=== PATIENT | male | born 1940 | race Caucasian/White ===

== ENCOUNTER 2021-01-06 14:08 | Emergency (ER) | payer MEDICARE ==
[~2021-01-06] VITALS: Ht 177.8 cm; Wt 90.8 kg
[2021-01-06 14:08] VITALS: BP 175/78
--- NOTE | 2021-01-06 14:39 | PHYS DOC ---
Past History Past Surgical History: No Surgical History Alcohol Use: Occasionally General Adult EDM: Chief Complaint: CHEST PAIN HPI: HPI: 81-year-old male presents with chest pain. The patient tells me that he has been having these intermittent episodes where it feels like there is a short thump of pressure in the left side of his chest. They only last a matter of seconds. He decided to come the emergency room today because he had 5 or 6 these episodes. They were not worse than any previous episodes just more of them today. Patient has no previous cardiac history. He had a negative stress test and cardiac work-up 2 years ago. He exercises regularly 3 days a week. He walked 4 miles yesterday. He denies fever or chills. He is vaccinated for C OVID-19. Review of Systems: Review of Systems: Constitutional: Denies fever or chills Eyes: Denies change in visual acuity HENT: Denies nasal congestion or sore throat Respiratory: Denies cough or shortness of breath Cardiovascular: Chest pain GI: Denies abdominal pain, nausea, vomiting, bloody stools or diarrhea : Denies dysuria Musculoskeletal: Denies back pain or joint pain Integument: Denies rash Neurologic: Denies headache, focal weakness or sensory changes Endocrine: Denies polyuria or polydipsia Lymphatic: Denies swollen glands Psychiatric: Denies depression or anxiety Allergies: Allergies: Allergies Coded Allergies Type Severity Reaction Last Updated Verified No Known Drug Allergies 01/06/21 No Physical Exam: PE: Constitutional: Well developed, well nourished, no acute distress, non-toxic appearance. [] HENT: Normocephalic, atraumatic, bilateral external ears normal, oropharynx moist, no oral exudates, nose normal. [] Eyes: PERRLA, EOMI, conjunctiva normal, no discharge. [] Neck: Normal range of motion, no tenderness, supple, no stridor. [] Cardiovascular: Heart rate 50, regular rhythm, no murmur [] Lungs & Thorax: Bilateral breath sounds clear to auscultation [] Abdomen: Bowel sounds normal, soft, no tenderness, no masses, no pulsatile masses. [] Skin: Warm, dry, no erythema, no rash. [] Back: No tenderness, no CVA tenderness. [] Extremities: No tenderness, no cyanosis, no clubbing, ROM intact, no edema. [] Neurologic: Alert and oriented X 3, normal motor function, normal sensory function, no focal deficits noted. [] Psychologic: Affect normal, judgement normal, mood normal. [] Current Patient Data: Vital Signs: Vital Signs Date Time Temp Pulse Resp B/P (MAP) Pulse Ox O2 Delivery O2 Flow Rate FiO2 01/06/21 14:08 97.9 50 14 175/78 100 Room Air EKG: EKG: Sinus rhythm, rate 50, normal axis, no ST elevation or depression. [] Radiology/Procedures: Radiology/Procedures: [] Impressions: XR CHEST 1V History: Chest pain Comparison: None. Technique: Portable AP radiograph of the chest. Findings: The lungs are adequately inflated. There are minimal linear opacities in the right lung base which may represent atelectasis. No pleural effusion or pneumothorax. Mild cephalization of pulmonary vasculature. Cardiac silhouette is normal in size. Degenerative changes of the spine. Soft tissues are unremarkable. Impression: 1. Mild right basilar atelectasis and mild pulmonary vascular congestion. Electronically signed by: Dennis Nichols MD (01/06/2021 3:04 PM) [facility] DICTATED AND SIGNED BY: DENNIS NICHOLS MD DATE: 01/06/21 1501 CC: VONDA BERGER DO; RANDALL KNIGHT MD ~MTH0 0 Heart Score: C/O Chest Pain: Yes HEART Score for Chest Pain: HEART Score for Chest Pain Response (Comments) Value History Slighlty/Non-Suspicious 0 ECG Normal 0 Age > 65 2 Risk Factors No Risk Factors 0 Troponin < Normal Limit 0 Total 2 Risk Factors: Risk Factors: DM, Current or recent (<one month) smoker, HTN, HLP, family history of CAD, obesity. Risk Scores: Score 0 - 3: 2.5% MACE over next 6 weeks - Discharge Home Score 4 - 6: 20.3% MACE over next 6 weeks - Admit for Clinical Observation Score 7 - 10: 72.7% MACE over next 6 weeks - Early Invasive Strategies Course & Med Decision Making: Course & Med Decision Making Pertinent Labs and Imaging studies reviewed. (See chart for details) The patient's EKG is unremarkable. His labs are unremarkable. His troponin is negative. His chest x-ray is negative for acute findings. This does not appear to be cardiopulmonary in nature. His description of the pain is also r eassuring as it is very short-lived. 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 He is stable for discharge at this time. [] Oksana Disclaimer: Dragjose Disclaimer: This electronic medical record was generated, in whole or in part, using a voice recognition dictation system. Departure Departure: Impression: Primary Impression: Chest pain Qualified Codes: R07.9 - Chest pain, unspecified Disposition: HOME / SELF CARE / HOMELESS Condition: STABLE Referrals: RANDALL KNIGHT MD (PCP) Patient Instructions: Chest Pain (Nonspecific), Vyad-ym-Fger VONDA BERGER DO Jan 06, 2021 14:39
[2021-01-06 14:51] LABS: BASO % 0 % (0-3); EOS # 0.2 x10^3/uL (0.0-0.7); EOS % 3 % (0-3); HEMATOCRIT 42.7 % (39.0-53.0); HEMOGLOBIN 14.5 g/dL (13.0-17.5); LYMPH # 2.2 x10^3/uL (1.0-4.8); LYMPH % 31 % (24-48); MEAN CORPUSCULAR HEMOGLOBIN 32 pg (25-35); MEAN CORPUSCULAR HGB CONC 34 g/dL (31-37); MEAN CORPUSCULAR VOLUME 93 fL (79-100); MONO # 0.7 x10^3/uL (0.0-1.1); MONO % 10 % (0-9); NEUT # 4.1 x10^3uL (1.8-7.7); NEUT % 56 % (31-73); PLATELET COUNT 142 x10^3/uL (140-400); RED BLOOD COUNT 4.59 x10^6/uL (4.30-5.70); RED CELL DISTRIBUTION WIDTH 13.3 % (11.5-14.5); WHITE BLOOD COUNT 7.3 x10^3/uL (4.0-11.0)
--- NOTE | 2021-01-06 15:07 | RAD ---
XR CHEST 1V History: Chest pain Comparison: None. Technique: Portable AP radiograph of the chest. Findings: The lungs are adequately inflated. There are minimal linear opacities in the right lung base which ma y represent atelectasis. No pleural effusion or pneumothorax. Mild cephalization of pulmonary vascula ture. Cardiac silhouette is normal in size. Degenerative changes of the spine. Soft tissues are unrem arkable. Impression: 1. Mild right basilar atelectasis and mild pulmonary vascular congestion. Electronically signed by: Dennis Nichols MD (01/06/2021 3:04 PM) [facility]
[2021-01-06 15:11] LABS: CALCIUM 8.5 mg/dL (8.5-10.1); CREATININE 0.8 mg/dL (0.7-1.3); GFR 92.8; POTASSIUM 3.9 mmol/L (3.5-5.1)
[2021-01-06 15:17] LABS: ALBUMIN/GLOBULIN RATIO 1.2 (1.0-1.7); TOTAL BILIRUBIN 0.6 mg/dL (0.2-1.0); TOTAL PROTEIN 7.4 g/dL (6.4-8.2)
--- NOTE | 2021-01-07 06:29 | EKG ---
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
== END 2021-01-06 15:35 | disposition home or self-care (01) ==
LOC: ER 14:08
DX: R07.89 Other chest pain (principal)
CPT/HCPCS: 36415; 71045; 80053; 84484; 85025; 93005; 99285